=== PATIENT | male | born 1970 | race Hispanic/Latino ===

== ENCOUNTER 2025-04-08 10:02 | Emergency (ER) | payer BC ==
[~2025-04-08] VITALS: Ht 175.3 cm; Wt 87.1 kg
[2025-04-08 10:20] VITALS: PULSE 94; RESP 16; TEMP 98.8
[2025-04-08 11:26] VITALS: BP 157/89; PULSE 78; RESP 18; TEMP 98.8; O2SAT 100
== END 2025-04-08 11:20 | disposition home or self-care (01) ==
LOC: FSED 10:15
DX: R05.9 Cough, unspecified (principal); J06.9 Acute upper respiratory infection, unspecified; I12.9 Hypertensive chronic kidney disease with stage 1 through stage 4 chronic kidney disease, or unspecified chronic kidney disease; N18.9 Chronic kidney disease, unspecified
CPT/HCPCS: 99282